=== PATIENT | female | born 1985 | race African-American/Black ===

== ENCOUNTER 2017-12-26 21:12 | Emergency (ER) | payer MEDICAID, OTHER ==
[~2017-12-26] VITALS: Ht 162.6 cm; Wt 84.0 kg
[~2017-12-26 21:12] MED LIST: HYDR-4001; IBUP-2028
[2017-12-27 04:42] LABS: CLARITY URINE CLOUDY (CLEAR); COLOR URINE YELLOW (YELLOW); KETONES URINE TRACE (NEGATIVE); LEUKOCYTE ESTERASE URINE 1+ (NEGATIVE); NITRITE URINE NEGATIVE (NEGATIVE); OCCULT BLOOD URINE NEGATIVE (NEGATIVE); PH URINE 5.5 (4.5-8.0); PROTEIN URINE NEGATIVE (NEGATIVE)
[2017-12-27] MEDS ORDERED: ACETAMINOPHEN 325MG TABLET PO ONE (05:15)
[2017-12-27 06:10] VITALS: BP 115/72
== END 2017-12-27 06:15 | disposition home or self-care (01) ==
LOC: ER 21:12
DX: T83.84XA Pain due to genitourinary prosthetic devices, implants and grafts, initial encounter (principal); F12.10 Cannabis abuse, uncomplicated
CPT/HCPCS: 76830; 76856; 81003; 99285